=== PATIENT | female | born 1985 | race Caucasian/White ===

== ENCOUNTER → 2016-08-11 | Outpatient (CLI) | payer BC ==
[~2016-08-11] MED LIST: ACHYD1T PO; DCS100C PO; HYDR-3714 PO; IBP800T PO; IBUP-1773 PO; PREN-93 PO; PREN1TAB39 PO
--- OUTSIDE RECORDS SUMMARY | 2016-08-11 09:39 | XMS REPORT ---
Author Author [facility] Organization [facility] Address [address] [place], [place] [id number] Phone [phone] Care Team Providers Care Sampler Radioactive Waste Name Role Phone ANKUR BRINK APRN PP [phone] Summary purpose TRANSITION OF CARE AUTO GENERATION Chief Complaint and Reason for Visit No authorized Reason for Visit (Admitting Diagnosis) is available for this visit. Problem list No authorized problems tracked for continuity of care are available for this visit. Encounters No authorized problems tracked for encounter diagnoses are available for this visit. Medications No medications recorded for this patient visit Allergies, adverse reactions, alerts No allergy information is available for this patient. Immunizations No immunizations recorded for this patient visit Relevant diagnostic tests and/or laboratory data RESULTS Chemistry :50:00 Result Normal Range Units Sodium 139 134-145 mEq/l Potassium 3.9 3.5-5.1 mEq/l Chloride 105 98-107 mEq/l CO2 26.0 22-28 mEq/l Glucose 90 70-105 mg/dl BUN 13 7-18 mg/dl Creatinine 0.82 0.6-1.0 mg/dl Triglycerides 85 35-160 mg/dl Cholesterol 165 120-200 mg/dl HDL Cholesterol 52 39-96 mg/dl VLDL Cholesterol 17 5-40 mg/dl LDL Cholesterol H 102 30-100 mg/dl Calcium 8.5 8.4-10.2 mg/dl TP - Total Protein 7.4 6.0-8.3 g/dl Albumin 3.9 3.5-5 g/dl Bilirubin - Total 0.1 0.1-1.0 mg/dl AST 13 10-42 IU/L ALT 22 12-65 IU/L ALP 53 25-72 IU/L Osmolality L 277.2 280-300 mOsm/L Albumin/Globulin Ratio 1.1 0-8 Anion GAP 8.0 8-16 BUN/Creatinine Ratio 15.9 10-20 Estimated GFR 81 >=60 mL/min/1.7 Hematology :50:00 Result Normal Range Units WBC 6.5 4.8-10.8 103/uL RBC 4.5 4.2-5.4 106/uL HGB 12.9 12.0-16.0 g/dl HCT 41.6 36.9-47.0 % MCV 91.8 81-99 FL MCH 28.5 27-31 pg MCHC L 31.0 33-37 g/dl RDW 12.7 11.5-15.5 % PLT 231 130-400 103/uL MPV 9.4 7.3-10.4 FL Thyroid Testing :50:00 Result Normal Range Units TSH 1.27 0.36-3.74 uIU/mL Free T4 1.20 0.76-1.46 ng/dl Radiology Results :50:00 Result Normal Range Units MPV 9.4 7.3-10.4 FL History of procedures Procedure Code Code Type Description Date Performed Performing Physician 89991 CPT-4 COMPREHEN METABOLIC PANEL 09-12-2015 ANKUR BRINK 33211 CPT-4 ASSAY THYROID STIM HORMONE 09-12-2015 ANKUR BRINK 47565 CPT-4 LIPID PANEL 09-12-2015 ANKUR BRINK 23888 CPT-4 COMPLETE CBC, AUTOMATED 09-12-2015 ANKUR BRINK 30184 CPT-4 ASSAY OF FREE THYROXINE 09-12-2015 ANKUR BRINK Functional status No functional or cognitive status observations are available for this visit. Vital signs No authorized vital signs are available for this visit. Social history No Social History or smoking status observations were recorded for this visit. ( Unknown if ever smoked.) Treatment Plan No treatment plan text is available for this visit. Hospital discharge instructions No discharge instruction text is available for this visit.
--- NOTE | 2016-08-11 14:07 | Diagnostic Imaging Report ---
PROCEDURE: US Thyroid. TECHNIQUE: Multiple real-time grayscale images were obtained of the thyroid in various projections. INDICATION: Declan thyroiditis. FINDINGS: The right thyroid lobe is 4.4 x 2.3 x 1.8 cm. The left lobe is 4.7 x 2.5 x 1.5 cm. There is minimal heterogeneity in the thyroid gland with no focal nodule seen. Lobulated contour is noted. IMPRESSION: Minimal heterogeneity and lobulation is seen in the thyroid gland with no focal mass. Dictated by: Dictated on workstation # [id number]
== END ==
LOC: RAD 09:28
PROVIDERS: ATTEND Internal Medicine Endocrinology, Diabetes & Metabolism
DX: E06.3 Autoimmune thyroiditis (principal)
CPT/HCPCS: 76536

== ENCOUNTER → 2018-12-27 | Outpatient (CLI) | payer BC, MEDICAID ==
--- NOTE | 2018-12-27 18:39 | Diagnostic Imaging Report ---
INDICATION: Anatomic survey. COMPARISON: None. TECHNIQUE: Multiple real-time grayscale images were obtained over the gravid uterus. FINDINGS: Single live intrauterine is identified with a heart rate of 139 beats per minute. Fetus is in a transverse breech position. The amniotic fluid volume is normal. The placenta is anterior and has a normal appearance. The cervix measures 3.9 cm and is closed. Visualized anatomy is grossly unremarkable. No anomalies are identified. Biometric measurements are symmetric. IMPRESSION: 1. Single live intrauterine at 19 weeks 1 day with a due date of 05/22/2019. 2. Breech presentation. 3. No anatomic abnormalities identified. Biometrical measurements are as follows: Biparietal 4.25 cm, age 19 weeks 0 days. Head circumference 16.09 cm, age 19 weeks 0 days. Abdominal circumference 13.73 cm, age 19 weeks 2 days. Femur length 2.98 cm, age 19 weeks 2 days. Sonographic estimate age: 19 weeks 1 days. Sonographic estimated date of delivery: 05/22/2019. Estimated Weight: 276 gm (+/- 40 gm). LMP percentile: 45%. heart rate: 139 beats per minute. number: 1 of 1. Dictated by: Dictated on workstation # [id number]
== END ==
LOC: RAD 13:55
PROVIDERS: ATTEND Obstetrics & Gynecology
DX: Z36.89 Encounter for other specified antenatal screening (principal); Z3A.19 19 weeks gestation of pregnancy
CPT/HCPCS: 76805

== ENCOUNTER 2019-05-05 12:03 | Outpatient (CLI) | payer BC, MEDICAID ==
[~2019-05-05] VITALS: Ht 172 cm; Wt 106.5 kg
[2019-05-05] MEDS ORDERED: PREN1TAB79 PO (12:16)
[2019-05-05 12:18] VITALS: BP 117/81
== END 2019-05-05 12:36 | disposition home or self-care (01) ==
LOC: PREOP 12:03
PROVIDERS: ATTEND Obstetrics & Gynecology
DX: Z01.818 Encounter for other preprocedural examination (principal)
CPT/HCPCS: 87081

== ENCOUNTER 2019-05-16 08:09 | Inpatient (IN) | payer BC, MEDICAID ==
[2019-05-16] VITALS (8 sets, daily range): BP systolic 97–143; BP diastolic 57–87
[~2019-05-16] VITALS: Ht 170.2 cm; Wt 106.8 kg
--- NOTE | 2019-05-16 08:00 | NUR ---
XANDER AVALOS admitted to room 3314-1, with an admitting diagnosis of repeat section, on 05/16/19 from home via ambulation, accompanied by s/o.XANDER AVALOS introduced to surroundings, call light, bed controls, phone, TV, temperature control, lights, meal times, smoking policy, visitor policy, side rail policy, bathrooms and showers. Patient Rights given to patient in the handbook. XANDER AVALOS verbalizes understanding that [facility] is not responsible for the loss or damage to any personal effects or valuables that are kept in the patients posession during their hospitalization. The following Patient Care Plans were discussed with the patient: Discharge Planning, pain management, preop and postop meds, and care. XANDER AVALOS verbalizes understanding of Interdisciplinary Patient Education. Patient and/or family were informed about the Rapid Response Team and its purpose.
[~2019-05-16 08:09] MED LIST changes: +PREN1TAB79 PO
[2019-05-16] MEDS ORDERED: FAMOTIDINE 20MG/2ML IV (PEPCID) ONE (08:56)
[2019-05-16] MEDS ORDERED: LACTATED RINGERS 1,000 ML IV ONE ×2 (08:56→10:24)
[2019-05-16] MEDS ORDERED: CITRIC ACID/SOB CIT (BICITRA) 30 ML UDC ONE (08:56)
[2019-05-16] MEDS ORDERED: METOCLOPRAMIDE INJ 10 MG/2 ML (REGLAN) ONE (08:56)
[2019-05-16 08:57] LABS: BASOPHILS % (AUTO) 0 % (0-10); EOSINOPHILS # (AUTO) 0.2 10^3/uL (0.0-0.3); EOSINOPHILS % (AUTO) 2 % (0-10); HEMATOCRIT 38 % (35-52); HEMOGLOBIN 12.1 G/DL (11.5-16.0); LYMPHOCYTES # (AUTO) 1.8 X 10^3 (1.0-4.0); LYMPHOCYTES % (AUTO) 15 % (12-44); MEAN CORPUSCULAR HEMOGLOBIN 28 PG (25-34); MEAN CORPUSCULAR HGB CONC 32 G/DL (32-36); MEAN CORPUSCULAR VOLUME 87 FL (80-99); MONOCYTES % (AUTO) 8 % (0-12); NEUTROPHILS # (AUTO) 9.2 X 10^3 (1.8-7.8); NEUTROPHILS % (AUTO) 75 % (42-75); PLATELET COUNT 226 10^3/uL (130-400); RED CELL DISTRIBUTION WIDTH 14.7 % (10.0-14.5); WHITE BLOOD COUNT 12.2 10^3/uL (4.3-11.0)
[2019-05-16] MEDS ORDERED: CITRIC ACID/SOB CIT (BICITRA) 30 ML UDC PO ONE (09:00)
[2019-05-16] MEDS ORDERED: ceFAZolin INJECTION 1,000 MG in WATER (STERILE) FOR INJECTION 10 ML IV ONE (09:00)
[2019-05-16] MEDS ORDERED: CATHETER FLUSH 10 ML SYR IV PRN (09:00)
[2019-05-16] MEDS ORDERED: METOCLOPRAMIDE INJ 10 MG/2 ML (REGLAN) IV ONE (09:00)
[2019-05-16] MEDS ORDERED: fentaNYL INJECTION 100 MCG/2 ML AMP ONE (09:16)
[2019-05-16] MEDS ORDERED: OXYTOCIN/NORMAL SALINE 1,000 ML IV ONE (09:17)
--- NOTE | 2019-05-16 10:00 | NUR ---
report received from RANI Nelson. care assumed of pt.
[2019-05-16] MEDS ORDERED: ceFAZolin INJECTION 1,000 MG ONE (10:26)
[2019-05-16] MEDS ORDERED: WATER (STERILE) FOR INJECTION 10 ML ONE (10:27)
--- NOTE | 2019-05-16 10:32 | History & Physical-OB ---
OB - Chief Complaint & HPI Date/Time Date of Admission: Date of Admission: May 16, 2019 at 08:09 Date seen by a Provider: May 16, 2019 Time Seen by a Provider: 10:30 Chief Complaint/History OB-Reason for Admission/Chief: Section Hx : 3 Hx Para: 2 Expected Date of Delivery: May 22, 2019 Gestational Age in Weeks: 39 Gestational Age in Days: 1 Indication for : desires repeat Admission Nurse Assessment Rev: Yes Allergies and Home Medications Allergies Coded Allergies: No Known Drug Allergies (Unverified , 05/05/19) Home Medications Vit W-Ca,Fe,FA(<1 mg) 1 Each Tablet, 1 EACH PO DAILY, (Reported) Patient Home Medication List Home Medication List Reviewed: Yes OB - History Hx of Present Care: Yes Ultrasounds: Normal mid trimester US Obstetrical Complications: None Medical Complications: None Obstetrical History Hx Termination: No Hx Multiple Gestation: No Hx Stillbirth: No Hx Complication: No Hx Induced Hypertens: Yes Hx Maternal Gestational Diabet: No Delivery History Hx Dystocia: No Hx Large For Gestational Age I: Yes Hx Small for Gestational Age I: No Hx Section: Yes Hx Vaginal Delivery Post C-Sec: No Hx Blood Disorders: No Adverse Rxn to Tranfusion: No (N/A) Patient Past Medical History n/a Social History/Family History HIV/AIDS: No Recent Infectious Disease Expo: No Sexually Transmitted Disease: No Alcohol Use: Denies Use Recreational Drug Use: No Immunizations Hepatitis A: No Hepatitis B: Yes Tetanus Booster (TDap): Less than 5yrs Date of Influenza Vaccine: Apr 06, 2019 OB - Admission Exam Physical Exam Vitals: Vital Signs 05/16/19 08:10 Temp 37.6 Pulse 100 Resp 20 Pulse Ox 97 O2 Delivery Room Air HEENT: NCAT Heart: Rhythm Normal Lungs: Clear Abdomen: Gravid Extremities: Normal Reflexes: Normal Heart Rate: 130's Short Term Variability: Present Snf Variability: Average (6-25) Contractions on Admission: >10 Minutes Apart Labs Laboratory Tests Test 05/16/19 08:35 Range/Units White Blood Count 12.2 H 4.3-11.0 10^3/uL Red Blood Count 4.29 L 4.35-5.85 10^6/uL Hemoglobin 12.1 11.5-16.0 G/DL Hematocrit 38 35-52 % Mean Corpuscular Volume 87 80-99 FL Mean Corpuscular Hemoglobin 28 25-34 PG Mean Corpuscular Hemoglobin Concent 32 32-36 G/DL Red Cell Distribution Width 14.7 H 10.0-14.5 % Platelet Count 226 130-400 10^3/uL Mean Platelet Volume 9.0 7.4-10.4 FL Neutrophils (%) (Auto) 75 42-75 % Lymphocytes (%) (Auto) 15 12-44 % Monocytes (%) (Auto) 8 0-12 % Eosinophils (%) (Auto) 2 0-10 % Basophils (%) (Auto) 0 0-10 % Neutrophils # (Auto) 9.2 H 1.8-7.8 X 10^3 Lymphocytes # (Auto) 1.8 1.0-4.0 X 10^3 Monocytes # (Auto) 1.0 0.0-1.0 X 10^3 Eosinophils # (Auto) 0.2 0.0-0.3 10^3/uL Basophils # (Auto) 0.0 0.0-0.1 10^3/uL OB - Assessment/Plan/Diagnosis Assessment Assessment: section Admission Dx 34 yo @ 39 weeks Previous x 2 Admission Status: Inpatient Order (span 2 midnights) Reason for Inpatient Admission: Repeat Plan Plan: Section PAIGE GARDUNO DO May 16, 2019 10:32 POS
--- NOTE | 2019-05-16 10:33 | NUR ---
pre-op medications given. see eMar for further.
--- NOTE | 2019-05-16 10:34 | NUR ---
monitors dc'd. pt ambulated to OB c/s room. OR staff @ side.
--- NOTE | 2019-05-16 10:38 | Discharge Inst-Women's Service ---
Discharge Inst-Women's Serv Depart Medication/Instructions New, Converted or Re-Newed RX: RX on Chart Final Diagnosis POD 2 RLTCS Problems Reviewed?: Yes Consults/Follow Up Additional Follow Up: Yes Orders/Referrals Dr. Khanna in 7-10 days, and in 8 weeks Activity Activity: Activity as Tolerated Driving Instructions: No Driving for 1 Week Nothing Inside Vagina: No Douching, No Stephens, No Tampons Diet Discharge Diet: No Restrictions Symptoms to Report to : Bleeding Excessive, Pain Increased, Fever Over 101 Degrees F, Vaginal Bleeding Increase, Questions/Concerns For Any Problems or Questions: Contact Your Physician Skin/Wound Care Infection Signs and Symptoms: Increased Redness, Foul Odor of Wound, Increased Drainage, Skin Itchy or Has a Rash, Increased Swelling, Temperature Above 101 F Operative Area Clean and Dry: Keep Incision Clean/Dry Stitches/Alejo/Dermabond: Dermabond, Care of Stitches Bathing Instructions: PAIGE Carmona DO May 16, 2019 10:38 POS
[2019-05-16] MEDS ORDERED: IBUP-844 PO (10:45)
[2019-05-16] MEDS ORDERED: DOCU100C37 PO (10:45)
[2019-05-16] MEDS ORDERED: MEASLES,MUMPS,RUBELLA 1 EA INJ SC SCH (10:45)
[2019-05-16] MEDS ORDERED: ACHD5005 PO (10:45)
[2019-05-16] MEDS ORDERED: TETANUS,DIPTH,PERTUSS P/F (BOOSTRIX) 0.5 ML VIAL IM SCH (10:45)
[2019-05-16] MEDS ORDERED: ONDANSETRON 4 MG/2 ML (SDV) Z0FRAN IVP PRN (10:45)
[2019-05-16] MEDS ORDERED: PHENYLEPHRINE 100 MCG/ML 10 ML (ANESTHESIA) SYR ONE (11:43)
[2019-05-16] MEDS ORDERED: BUPIVACAINE 0.5% 30 ML (SENSORCAINE) VIAL ONE (11:43)
[2019-05-16] MEDS: KETOROLAC 30 MG/ML VIAL IV SCH ×3 (12:06→23:39)
[2019-05-16] MEDS: CATHETER FLUSH 10 ML SYR IV SCH ×2 (12:07→23:40)
--- NOTE | 2019-05-16 13:02 | NUR ---
pt transferred to room 308 with this RN at side. pt alert, talking. no c/o's voiced. familiarized with room surroundings. call light within reach.
--- NOTE | 2019-05-16 14:24 | NUR ---
Report given to RANI Deal. [facility] assumed.
--- NOTE | 2019-05-16 14:30 | NUR ---
ASSISTED PT TO WC AND TAKEN TO NSY FOR AND BONDING, TOLERATED WELL, NO DISTRESS NOTED.
--- NOTE | 2019-05-16 16:09 | NUR ---
PT ASSISTED PT BACK TO ROOM FROM NSY, TO BR, UNABLE TO VOID AT THIS TIME, ARMANDO-CARE COMPLETED, PT AMBULATED BACK TO BED WITH ASSISTED, TOLERATED WELL. HAILY IN PTS ROOM WORKING ON PUMPING.
--- NOTE | 2019-05-16 17:39 | NUR ---
SCHEDULED TORADOL GIVEN SIVP. VSS.
--- NOTE | 2019-05-16 18:00 | OPERATIVE REPORT ---
DATE OF SERVICE: PREOPERATIVE DIAGNOSES: 1. A 34-year-old G3, P2 at 39 weeks gestation. 2. Previous section x2. POSTOPERATIVE DIAGNOSES: 1. A 34-year-old G3, P2 at 39 weeks gestation. 2. Previous section x2. PROCEDURE: Repeat low transverse section. SURGEON: Loi Khanna DO QUILL COLLECTOR: Rakel Hercules DNP. ANESTHESIA: Spinal. ESTIMATED BLOOD LOSS: 600 mL. URINE OUTPUT: 75 mL clear at the end of the procedure. FLUIDS: 1700 mL of lactated Ringer's solution. FINDINGS: A live female infant weighing 6 pounds 11 ounces, Apgars 9 and 9. Grossly normal appearing uterus, bilateral fallopian tubes and ovaries. SPECIMEN SENT: None. INDICATIONS FOR PROCEDURE: This 34-year-old female is a patient who had sought care in my office, it was uncomplicated with the exception of advanced maternal age, which no complication, was discovered pertaining to this. She was scheduled for repeat section at 39 weeks. During her care, she was counseled extensively about risk of repeat , recovery timeframe and restrictions. After all of her questions were answered, once again in the preoperative area, consent was obtained, the patient was taken to the operating room. OPERATIVE REPORT IN DETAIL: Once in the operating room, spinal analgesia was found to be adequate, placed in supine position with leftward tilt, prepped and draped in normal sterile fashion. Anesthesia was tested and timeout was performed. I then proceeded with making a Pfannenstiel skin incision through the previously existing scar using knife and carried down to underlying fascia using Bovie cautery. The fascial incision extended laterally using Bovie cautery. Superior aspect of fascial incision was then grasped with Lila clamps, tented up and dissected off the underlying rectus muscles. The inferior aspect of the fascial incision was then grasped with Lila clamps, tented up and dissected off the underlying rectus muscles. The rectus muscles were then dissected down the midline using Deng scissors, which exposed the peritoneum, which I entered bluntly and extended using blunt traction. I then placed an Macario ring retractor within the peritoneal incision, which offers excellent lateral sidewall retraction. I then made an incision through the vesicouterine peritoneum using a knife and bluntly dissected off the lower uterine segment and proceeded with myotomy until membranes were visualized, I then extended the uterine incision laterally and superiorly using bandage scissors. Amniotomy was then performed using Allis clamp. Clear fluid was noted. The infant was found in vertex presentation. With gentle fundal pressure, the 's head was delivered through the incision where the nares and oropharynx were then bulb suctioned. Anterior and posterior shoulders were delivered and the was then brought to the operative field where the cord was doubly clamped and cut and was handed off to waiting nurses in attendance. Cord blood was collected. Three-vessel cord was intact. Placenta is delivered spontaneously thereafter. IV Pitocin was initiated to facilitate uterine contraction. Uterine fundus confirmed by manual massage. The uterus was then exteriorized and cleared of all endometrial clots and debris. I then proceeded with closing the uterine incision using 0 Vicryl suture in running locked fashion. Second layer of imbricating 0 Monocryl was placed. Excellent hemostasis was noted after doing this. I then placed the uterus back in the pelvis and copiously irrigated the pelvis using normal saline. Once again, there was no active bleeding noted from any of my dissection planes. I placed Interceed antiadhesive over my low transverse incision and proceeded with closing the peritoneum after removing the Macario ring retractor. The peritoneum was reapproximated using 3-0 Vicryl suture in running fashion. The rectus muscle was reapproximated using 3-0 Vicryl suture in interrupted fashion. The fascia was reapproximated using 0 Vicryl suture in running fashion. Subcutaneous tissue was reapproximated using 3-0 plain interrupted subcutaneous stitch and the skin was reapproximated using 4-0 Monocryl running subcuticular. Dermabond was applied to incision and sterile dressing with adhesive white tape. Lap and sponge counts were correct at the end of the procedure. Instrument count was correct as well. Two grams of Ancef was given preoperatively for infection prophylaxis. Job ID: [id number] DocumentID: [id number] Dictated Date: 05/16/2019 11:50:51 Nursing Student Date: 05/16/2019 17:59:33 Dictated By: DO ENOC WALKER
[2019-05-16] MEDS: HYDROcodone/APAP 5 MG/325 MG (LORTAB) TAB PO PRN ×2 (18:26→20:07)
[2019-05-16] MEDS: DOCUSATE SODIUM 100 MG (COLACE) CAP PO SCH (20:06)
[2019-05-17] VITALS: BP 113/68
[2019-05-17] MEDS: HYDROcodone/APAP 5 MG/325 MG (LORTAB) TAB PO PRN ×4 (02:09→20:43)
[2019-05-17 04:00] VITALS: BP 116/77
[2019-05-17] MEDS: CATHETER FLUSH 10 ML SYR IV SCH (06:27)
[2019-05-17] MEDS: KETOROLAC 30 MG/ML VIAL IV SCH (06:27)
[2019-05-17 06:38] LABS: BASOPHILS % (AUTO) 0 % (0-10); EOSINOPHILS # (AUTO) 0.3 10^3/uL (0.0-0.3); EOSINOPHILS % (AUTO) 2 % (0-10); HEMATOCRIT 34 % (35-52); HEMOGLOBIN 10.9 G/DL (11.5-16.0); LYMPHOCYTES # (AUTO) 2.1 X 10^3 (1.0-4.0); LYMPHOCYTES % (AUTO) 15 % (12-44); MEAN CORPUSCULAR HEMOGLOBIN 29 PG (25-34); MEAN CORPUSCULAR HGB CONC 32 G/DL (32-36); MEAN CORPUSCULAR VOLUME 89 FL (80-99); MEAN PLATELET VOLUME 9.2 FL (7.4-10.4); MONOCYTES % (AUTO) 8 % (0-12); NEUTROPHILS # (AUTO) 10.2 X 10^3 (1.8-7.8); NEUTROPHILS % (AUTO) 75 % (42-75); PLATELET COUNT 203 10^3/uL (130-400); RED CELL DISTRIBUTION WIDTH 14.7 % (10.0-14.5); WHITE BLOOD COUNT 13.6 10^3/uL (4.3-11.0)
--- NOTE | 2019-05-17 07:52 | Postpartum Progress Note ---
Note Note Day # 1 Subjective: Patient is without complaints. Ambulating, voiding. Tolerating a regular diet without nausea or vomiting. Normal lochia. Pain is well controlled with oral pain medications. Patient describes headache consistent with post spinal headache. Objective: Physical Exam: General - Alert and oriented, no apparent distress Abdomen - Soft, appropriately tender to palpation, non-distended, fundus firm at umbilicus Extremities - no edema, negative Serina's bilaterally Incision- c/d/i Assessment: POD 1 RLTCS Acute blood loss anemia Plan: Routine care. Encourage breast feeding. Encourage ambulation. Ferrous sulfate supplementation. Plan for discharge tomorrow Vitals - Labs Vital Signs - I&O Vital Signs Date Time Temp Pulse Resp B/P (MAP) Pulse Ox O2 Delivery O2 Flow Rate FiO2 05/17/19 04:00 36.6 85 18 116/77 (90) 99 Room Air 05/17/19 00:00 36.5 86 18 113/68 (83) 99 Room Air 05/16/19 20:07 36.9 101 18 132/87 (102) 99 Room Air 05/16/19 17:40 37.0 103 16 143/81 (101) 99 Room Air 05/16/19 12:54 36.3 74 16 118/65 (82) 99 Room Air 05/16/19 12:54 Room Air 05/16/19 12:54 36.3 16 118/65 (82) 99 Room Air 05/16/19 12:35 Room Air 05/16/19 12:35 36.4 16 102/59 (73) 96 Room Air 05/16/19 12:18 36.4 16 97/57 (70) 96 Room Air 05/16/19 12:18 Room Air 05/16/19 12:05 36.9 16 113/59 (77) 99 Room Air 05/16/19 12:05 Room Air 05/16/19 10:20 36.4 90 18 136/82 (100) 99 Room Air 05/16/19 08:10 37.6 100 20 97 Room Air I & O 05/17/19 07:00 Intake Total 2660 ml Output Total 1000 ml Balance 1660 ml Labs Laboratory Tests 05/16/19 08:35: White Blood Count 12.2H, Red Blood Count 4.29L, Hemoglobin 12.1, Hematocrit 38, Mean Corpuscular Volume 87, Mean Corpuscular Hemoglobin 28, Mean Corpuscular Hemoglobin Concent 32, Red Cell Distribution Width 14.7H, Platelet Count 226, Mean Platelet Volume 9.0, Neutrophils (%) (Auto) 75, Lymphocytes (%) (Auto) 15, Monocytes (%) (Auto) 8, Eosinophils (%) (Auto) 2, Basophils (%) (Auto) 0, Neutrophils # (Auto) 9.2H, Lymphocytes # (Auto) 1.8, Monocytes # (Auto) 1.0, Eosinophils # (Auto) 0.2, Basophils # (Auto) 0.0 05/17/19 06:17: White Blood Count 13.6H, Red Blood Count 3.79L, Hemoglobin 10.9L, Hematocrit 34L , Mean Corpuscular Volume 89, Mean Corpuscular Hemoglobin 29, Mean Corpuscular Hemoglobin Concent 32, Red Cell Distribution Width 14.7H, Platelet Count 203, Mean Platelet Volume 9.2, Neutrophils (%) (Auto) 75, Lymphocytes (%) (Auto) 15, Monocytes (%) (Auto) 8, Eosinophils (%) (Auto) 2, Basophils (%) (Auto) 0, Neutro phils # (Auto) 10.2H, Lymphocytes # (Auto) 2.1, Monocytes # (Auto) 1.0, Eosinophils # (Auto) 0.3, Basophils # (Auto) 0.0 PAIGE GARDUNO DO May 17, 2019 07:52 POS
[2019-05-17 08:10] VITALS: BP 118/67
[2019-05-17] MEDS: DOCUSATE SODIUM 100 MG (COLACE) CAP PO SCH ×2 (08:22→20:42)
--- NOTE | 2019-05-17 08:43 | Anesthesia-Regional Post-Op ---
Regional Patient Condition Mental Status: Alert, Oriented x3 Circulation: Same as Pre-Op Headache: Absent Sensation: Full Recovery Motor Block: Absent Post Op Complications Complications None Follow Up Care/Instructions Patient Instructions None needed. Anesthesia/Patient Condition Patient is doing well, no complaints, stable vital signs, no apparent adverse anesthesia problems. No complications reported per nursing. D/C home [facility] [place]: NINFA Guevara CRNA May 17, 2019 08:43 POS
[2019-05-17] MEDS: IBUPROFEN 600 MG (MOTRIN) TAB PO SCH ×2 (12:47→18:58)
[2019-05-17 15:01] VITALS: BP 130/67
[2019-05-17 20:40] VITALS: BP 125/71
[2019-05-18 01:00] VITALS: BP 124/68
[2019-05-18] MEDS: IBUPROFEN 600 MG (MOTRIN) TAB PO SCH ×3 (01:00→13:15)
[2019-05-18] MEDS ORDERED: CALCIUM CARBONATE 500 MG (TUMS) TAB.CHEW ONE (01:14)
[2019-05-18 06:55] VITALS: BP 108/73
--- NOTE | 2019-05-18 07:48 | Postpartum Progress Note ---
LIZET SUBRAMANIAN [facility] 05/18/19 0748: Note Note Day # [] Subjective: Patient's pain is controlled. Ambulating and voiding without issue. Tolerating a regular diet, denies n/v. Patient is . Headaches and back soreness have improved. Objective: Physical Exam: General - Alert and oriented, no apparent distress Abdomen - Soft, appropriately tender to palpation, non-distended, fundus firm at umbilicus Extremities - no edema, negative Serina's bilaterally Assessment: post- day # 2 s/p Recovering well blood loss anemia Plan: Routine care. Encourage breast feeding. Encourage ambulation. Ferrous sulfate supplementation. Plan for discharge Vitals - Labs Vital Signs - I&O Vital Signs Date Time Temp Pulse Resp B/P (MAP) Pulse Ox O2 Delivery O2 Flow Rate FiO2 05/18/19 06:55 36.5 71 18 108/73 (85) 98 Room Air 05/18/19 01:00 36.7 84 18 124/68 (86) 98 Room Air 05/17/19 20:40 36.7 95 18 125/71 (89) 98 Room Air 05/17/19 15:01 36.8 90 18 130/67 (88) 96 Room Air 05/17/19 08:10 36.0 85 18 118/67 (84) 99 Room Air PAIGE GARDUNO DO 05/18/19 0759: Note Note examined patient, Incision: c/d/i, agree with documentation as listed above [facility] May 18, 2019 07:48 PAIGE MARTINEZ DO May 18, 2019 07:59 POS
[2019-05-18] MEDS: DOCUSATE SODIUM 100 MG (COLACE) CAP PO SCH (08:35)
[2019-05-18] MEDS: HYDROcodone/APAP 5 MG/325 MG (LORTAB) TAB PO PRN (08:35)
[2019-05-18 08:36] VITALS: BP 123/80
--- NOTE | 2019-05-18 08:40 | NUR ---
THIS RN TO BEDSIDE, PT UP IN ROOM. DR. GARDUNO HAS ROUNDED ON PT THIS AM. VS OBTAINED. MEDS GIVEN; SEE EMAR FOR FURTHER. INITIAL SHIFT ASSESSMENT COMPLETED; SEE INTERVENTION FOR FURTHER. NO NEEDS VOICED. CALL LIGHT WITHIN REACH. S/O AT THE BEDSIDE.
--- NOTE | 2019-05-18 12:04 | NUR ---
PT VOICES THAT SHE HAS ALREADY RECEIVED THE TDAP VACCINATION. DISCHARGE PAPERS PROVIDED AND REVIEWED WITH PT, PT VERBALIZES UNDERSTANDING AND DENIES ANY NEEDS OR QUESTIONS AT THIS TIME. PAPER SIGNED. FOLLOW UP APPOINTMENT CARDS AND RX'S ALSO PROVIDED AT THIS TIME. PT FEEDING INFANT; WILL CALL WHEN READY TO BE ESCORTED OFF UNIT. S/O AT THE BEDSIDE.
--- NOTE | 2019-05-18 13:15 | NUR ---
ROUTINE MOTRIN GIVEN PO; SEE EMAR FOR FURTHER. PT AND S/O EATING STORK MEAL AND THEN WILL BE READY TO LEAVE.
--- NOTE | 2019-05-18 13:31 | NUR ---
PT DISCHARGED FROM -[facility] TO PERSONAL [facility] VIA AMBULATORY IN STABLE CONDITION ACC BY THIS RN AND S/O.
--- NOTE | 2019-05-21 07:11 | DISCHARGE SUMMARY ---
DATE OF SERVICE: ADMISSION DIAGNOSES: 1. A 34-year-old G3, P2 at 39 weeks gestation. 2. Previous section x2. DISCHARGE DIAGNOSES: 1. A 34-year-old G3, P2 at 39 weeks gestation. 2. Previous section x2. 3. Postop day #1, repeat low transverse section. 4. Acute blood loss anemia. ATTENDING PHYSICIAN: Paige Garduno DO SERVICES: Women's Services. HOSPITAL COURSE: Please see admission H and P from 05/16/2019 for complete details pertaining to patient's admission presentation and plan of care. Please see operative report for complete details pertaining to the patient's operative procedure and indications. POSTOPERATIVE COURSE: This patient was fairly routine on postop day #1, the patient was doing well. She was ambulating and voiding freely. Her pain was well controlled on p.o. pain medications. Incision remained clean, dry and intact. She had acute blood loss anemia and drop in her hemoglobin from 12.1 preoperatively to 10.9 postoperatively. She was started on low dose ferrous sulfate supplementation. Her vital signs remained stable. On postop day #2, she was doing very well, ambulating and voiding freely, tolerating regular diet and pain was well controlled on p.o. pain medications. The decision was made to discharge the patient home on postop day #2. She was given routine and postoperative precautions and told to return to care in 7 to 10 days for incision check and 6 weeks for evaluation. All other the patient's questions were answered pertaining to precautions and followup. She was sent home on the following medications including Colace 100 mg 1 p.o. b.i.d. p.r.n. for constipation, #40, Lortab 5/325 one to two p.o. q.4-6 hours p.r.n. as needed for pain, #50 and Motrin 600 mg 1 p.o. q.6 hours p.r.n. as needed for pain, #80. She was told to continue her vitamin with iron. Discharge was facilitated at that point without further difficulty after all the patient's questions were answered pertaining to medication administration. Job ID: [id number] DocumentID: [id number] Dictated Date: 05/20/2019 21:25:18 Glass Etcher Helper Date: 05/21/2019 07:10:35 Dictated By: PAIGE GARDUNO DO
== END 2019-05-18 13:31 | disposition home or self-care (01) | DRG 787 ==
LOC: LDRP 08:09
PROVIDERS: ADMIT Obstetrics & Gynecology; ATTEND Obstetrics & Gynecology
PROC: 10D00Z1 Extraction of Products of Conception, Low, Open Approach (ICD-10-PCS; principal; 2019-05-16 10:37)
DX: O34.211 Maternal care for low transverse scar from previous cesarean delivery (principal); G97.1 Other reaction to spinal and lumbar puncture; O99.354 Diseases of the nervous system complicating childbirth; O90.81 Anemia of the puerperium; D62 Acute posthemorrhagic anemia; Z37.0 Single live birth; Z3A.39 39 weeks gestation of pregnancy
CPT/HCPCS: 36415; 85025; 86850; 86900; 86901

== ENCOUNTER → 2023-04-21 | Outpatient (CLI) | payer BC ==
[~2023-04-21] MED LIST changes: +ACHD5005 PO; +DOCU100C37 PO; +IBUP-844 PO
--- NOTE | 2023-04-21 12:33 | Diagnostic Imaging Report ---
INDICATION: Routine screening. No prior mammograms are available for comparison. This a baseline study. 2-D and 3-D bilateral screening mammography was performed with CAD. The current study was also evaluated with a Computer Aided Detection (CAD) system. Both breasts are heterogeneously dense, limiting the sensitivity of mammography. No dominant mass or malignant-appearing microcalcifications are identified. Axillae are unremarkable. IMPRESSION: BI-RADS Category 1 No mammographic features suspicious for malignancy are identified. ACR BI-RADS Category 1: Negative. Result letter will be mailed to the patient. Note: At least 10% of breast cancer is not imaged by mammography. Dictated by: Dictated on workstation # [id number]
== END ==
LOC: RAD 08:38
PROVIDERS: ATTEND Nurse Practitioner
DX: Z12.31 Encounter for screening mammogram for malignant neoplasm of breast (principal)
CPT/HCPCS: 77063; 77067